=== PATIENT | female | born 1985 | race Caucasian/White ===

== ENCOUNTER 2016-07-09 15:02 | Emergency (ER) ==
[2016-07-09 15:33] LABS: BASO% 0.3 % (0.0-0.8); EOS# 0.54 X1000 (0.0-0.7); EOS% 3.9 % (0.0-10.0); HEMATOCRIT 43.3 % (37.0-47.0); HEMOGLOBIN 14.6 g/dL (12.0-16.0); IMM GRAN# 0.02 X1000 (0.0-0.04); IMM GRAN% 0.1 % (0.0-0.5); LYMPH# 2.17 X1000 (1.2-3.4); LYMPH% 15.7 % (20.5-51.1); MANUAL DIFF NEEDED? NO; MCH 31.2 PG (27-31); MCHC 33.7 g/dL (33-37); MCV 92.5 FL (81-99); MONO# 0.83 X1000 (0.11-0.59); MPV 9.9 FL (7.4-10.4); PLT 233 X1000 (130-400); RBC 4.68 XMIL (4.2-5.4)
[2016-07-09 15:36] LABS: BILIRUBIN URINE NEGATIVE (NEGATIVE); BLOOD URINE NEGATIVE (NEGATIVE); COLOR YELLOW; GLUCOSE URINE NEGATIVE (NEGATIVE); LEUKOCYTES URINE NEGATIVE (NEGATIVE); NITRITE URINE NEGATIVE (NEGATIVE); PROTEIN URINE NEGATIVE (NEGATIVE); TURBIDITY URINE CLEAR (CLEAR); URINE CULTURE NEEDED? NO; URINE MICRO REVIEW NEEDED? NO; URINE SOURCE CLEAN CATCH; UROBILINOGEN URINE 2 mg/dL (NORMAL)
[2016-07-09 15:38] LABS: UR EPITHELIAL CELLS <10 /HPF (<10); URINE BACTERIA 1+ /HPF; URINE RBC <10 /HPF (<10); URINE WBC <10 /HPF (<10)
[2016-07-09 16:00] LABS: AGAP 12; ALBUMIN 4.6 g/dL (3.5-5.0); ALKALINE PHOSPHATASE 64 U/L (32-104); AMYLASE 61 U/L (20-200); BUN 11 mg/dL (8-22); CALCIUM 9.5 mg/dL (8.8-10.2); CHLORIDE 104 mmol/L (98-107); COSMO 283; GOT 13 U/L (10-30); GPT 16 U/L (10-36); LIPASE 52 U/L (13-60); POTASSIUM 3.9 mmol/L (3.5-5.1); SODIUM 142 mmol/L (136-145); TCO2 26 mmol/L (25-35); TOTAL BILIRUBIN 0.49 mg/dL (0.20-1.00); TOTAL PROTEIN 7.8 g/dL (6.3-8.3)
--- NOTE | 2016-07-09 17:10 | PROVIDER DOCUMENTATION ---
HPI-Abdominal Pain/GI Problem - General Source: patient <Tram Rincon - Last Filed: 07/09/16 17:04> - History of Present Illness-ABD Abdominal Pain Onset Location: reports: periumbilical Pain Radiation: reports: no radiation Quality of Pain: reports: aching Severity in ED: reports: mild Onset/Duration: reports: 4 days ago Timing: reports: still present Activities at Onset: reports: none Modifying Factors: improves with: nothing Bruising or Bleeding Gums?: No Similar Symptoms Previously?: No Recently seen or treated by another doctor?: Yes <Aleksandra Pittman - Last Filed: 07/10/16 00:07> - General Chief Complaint: Abdominal Pain Stated Complaint: abd pain Time Seen by Provider: 07/09/16 16:58 Allergies/Adverse Reactions: Patient Allergies Allergy/AdvReac Type Severity Reaction Status Date / Time No Known Allergies Allergy Verified 07/09/16 19:20 Home Medications: Citalopram [Celexa] 40 mg PO HS 07/09/13 Topiramate [Topamax] 100 mg PO QPM 07/09/13 Dicyclomine [Bentyl] 10 mg PO 4XDAY PRN 07/09/16 - History of Present Illness-ABD Nature of Presenting Problems: 31 year old WF presents with a 4 day history of dull umbilical abd pain. pt reports it is constant, non-radiating with associated anorexia, nausea, worsens with food/intake. pt reports she was evaluated at an urgent care yesterday, given bentyl, provides brief relief and then it worsens. denies fever, chills. pt reports the pain has been awakening h er from sleep at night. denies vomiting , diarrhea. pt reports she has a history of frequent UTI's which are managed by a urologist, but she reports this pain is different. (Tram Rincon) Review of Systems - Adult - REVIEW OF SYSTEMS - ADULT Constitutional: denies: chills, fever Eyes: reports: no symptoms reported Ears, Nose, Mouth & Throat: denies: ear pain, throat pain Cardiovascular: denies: chest pain, palpitations Respiratory: denies: cough, shortness of breath Gastrointestinal: reports: abdominal pain. denies: nausea, vomiting Genitourinary: denies: dysuria, hematuria Musculoskeletal: denies: muscle aches, muscle weakness Integumentary: reports: no symptoms reported Neurological: reports: no symptoms reported Psychiatric: reports: no symptoms reported Endocrine: reports: no symptoms reported Hematologic/Lymphatic: reports: no symptoms reported Allergic/Immunologic: reports: no symptoms reported All Other Systems: Reviewed and Negative <Aleksandra Pittman - Last Filed: 07/10/16 00:07> Past History - Adult - PAST MEDICAL HISTORY-ADULT Obstetrical/Gynecological: reports: ovarian cysts Neurological: reports: headaches/migraines Psychiatric: reports: depression - PRIOR SURGERIES/PROCEDURES Surgical/Procedure History: reports: other (brain Sx, septoplasty, lap Sx, jaw Sx) - IMMUNIZATION STATUS Childhood Immunizations: UTD Flu Vaccine: See Nurse Assessment - FAMILY HISTORY Family History: reviewed, not pertinent <Tram Rincon - Last Filed: 07/09/16 17:04> - PAST MEDICAL HISTORY-ADULT Review of Records: reports: Nursing Assessment Review, Medications Reviewed Major Childhood Illnesses: reports: denies history - PRIOR SURGERIES/PROCEDURES Surgical/Procedure History: reports: hysterectomy, other (brain, jaw, laproscopy , rhinoplasty) - IMMUNIZATION STATUS Childhood Immunizations: See Nurse Assessment Flu Vaccine: See Nurse Assessment <Aleksandra Pittman - Last Filed: 07/10/16 00:07> Physical Exam-General - PHYSICAL EXAM-ADULT Initial Vital Signs Reviewed: Yes - CONSTITUTIONAL General Appearance: appears well, alert, no apparent distress - RESPIRATORY Respiratory: chest non-tender, lungs clear, normal breath sounds - CARDIOVASCULAR Cardiovascular: normal peripheral pulses, regular rate, rhythm, no edema - GASTROINTESTINAL (ABDOMEN) Abdominal Exam: normal bowel sounds, soft, tenderness (epigastric and RUQ), Borwn's sign - MUSCULOSKELETAL Extremity: normal inspection - SKIN Integumentary: normal color, normal turgor, warm/dry - PSYCHIATRIC Psych/Mental Status: normal mood/affect, normal thought content, normal thought process, oriented x 3 <Aleksandra Pittman - Last Filed: 07/10/16 00:07> Progress <Tram Rincon - Last Filed: 07/09/16 17:04> - ULTRASOUND (By Radiology) 1 US Study: Gallbladder Impression: Normal US Results: normal <Aleksandra Pittman - Last Filed: 07/10/16 00:07> - PLAN OF CARE/RESULTS Progress/Plan/Lab Results: plan of care: imaging, labs, medications Orders Category Date Time Status FLAT/UPRIGHT ABD/1 VIEW CHEST [RAD] Stat Exams 07/09/16 17:09 Taken US GB < RUQ (LIMITED) [US] Stat Exams 07/09/16 21:48 Taken AMYLASE [CHEM] Stat Lab 07/09/16 15:17 Completed CBC WITH ELECTRONIC DIFF [HEME] Stat Lab 07/09/16 Completed COMPREHENSIVE METABOLIC PANEL [CHEM] Stat Lab 07/09/16 15:17 Completed LIPASE [CHEM] Stat Lab 07/09/16 15:17 Completed UA Reflex [URINALYSIS W/POSS RFLX CULT] [URINALYSIS] Lab 07/09/16 Completed Stat Ketorolac [Toradol] Med 07/09/16 21:49 Discontinued 60 mg IM NOW ONE Ondansetron Odt [Zofran Odt] Med 07/09/16 21:49 Discontinued 8 mg PO NOW ONE Laboratory Tests 07/09/16 07/09/16 07/09/16 15:17 Unknown Unknown WBC 13.84 H RBC 4.68 Hgb 14.6 Hct 43.3 MCV 92.5 MCH 31.2 H MCHC 33.7 RDW Std Deviation 12.9 Plt Count 233 MPV 9.9 Immature Gran % (Auto) 0.1 Neut % (Auto) 74.0 Lymph % (Auto) 15.7 L [place] % (Auto) 6.0 Eos % (Auto) 3.9 Baso % (Auto) 0.3 Immature Gran # (Auto) 0.02 Neut # (Auto) 10.24 H Lymph # (Auto) 2.17 [place] # (Auto) 0.83 H Eos # (Auto) 0.54 Baso # (Auto) 0.04 Sodium 142 Potassium 3.9 Chloride 104 Carbon Dioxide 26 Anion Gap 12 BUN 11 Creatinine 0.8 Estimated GFR/1.73 m2 > 60 BUN/Creatinine Ratio 14 Glucose 106 H Calculated Osmolality 283 Calcium 9.5 Total Bilirubin 0.49 AST 13 ALT 16 Alkaline Phosphatase 64 Total Protein 7.8 Albumin 4.6 Globulin 3.2 Albumin/Globulin Ratio 1.4 Amylase 61 Lipase 52 Urine Source CLEAN CATCH Urine Color YELLOW Urine Turbidity CLEAR Urine pH 7.0 Ur Specific [place] 1.020 Urine Protein NEGATIVE Ur Glucose (Stick) NEGATIVE Ur Ketones (Stick) NEGATIVE Urine Blood NEGATIVE Urine Nitrite NEGATIVE Urine Bilirubin NEGATIVE Urobilinogen Dipstick 2 A Urine Leukocytes NEGATIVE Urine WBC (Auto) <10 Urine RBC (Auto) <10 U Epithel Cells (Auto) <10 Urine Bacteria (Auto) 1+ Vital Signs - 24 hr 07/09/16 07/09/16 15:06 19:23 Temperature 97.7 F 98.5 F Pulse Rate 75 75 Respiratory 20 16 Rate Blood Pressure 109/65 115/74 O2 Sat by Pulse 100 100 Oximetry Pt given results and will be d/c home w/ rx to follow up with PCP. Pt verbally understood instructions. PT remained clinically stable throughout the course of the ED stay and will return if symptoms worsen. (Aleksandra Pittman) Departure <Tram Rincon - Last Filed: 07/09/16 17:04> - Departure Time of Disposition Order: 00:05 Certified Medical Emergency: Emergent <Aleksandra Pittman - Last Filed: 07/10/16 00:07> - Departure DIAGNOSIS: Biliary colic Disposition: HOME 01 Condition: Good Additional Instructions: Avoid fatty and greasy foods. Follow up with surgery. ED Follow Up Instructions: You have been treated by a care provider in the Emergency Department. These instructions are being provided to you so you can have an understanding of how to care for yourself upon discharge. Upon discharge from the Emergency Department, you are responsible for making arrangements for follow-up care by a physician of your choice. Take all prescribed medications as directed. Return to the Emergency Department immediately for any new or worsening symptoms. You may call the Physician Referral phone number at [phone] to obtain a list of Physicians who are taking new patients. Prescriptions: Hydrocodone/Acetaminophen [[place] 7.5-325 Tablet] 1 each PO Q4-6H PRN PRN #20 tablet PRN Reason: Pain Ketorolac [Toradol] 10 mg PO Q6H PRN PRN #20 tablet PRN Reason: Pain Ondansetron [Zofran Odt] 8 mg PO Q8H PRN #20 tab.rapdis Referrals: Jenn Laurent MD [Primary Care Provider] - Puneet Grace MD [STAFF PHYSICIAN] - Instructions: Biliary Colic Attestation - Scribe Verification/Attestation Scribe:: Aleksandra Pittman Acting as Scribe for:: Elijah Warner Scribe documention review:: This chart was documented by a scribe and accurately reflects the service the provider performed and the decisions made by the provider. <Aleksandra Pittman - Last Filed: 07/10/16 00:07> Physician Attestation - Physician Attestation I, the provider, attest to the following statement:: Elijah Warner Physician documentation Attestation:: This documentation recorded by the scribe accurately reflects the service I personally performed and the decisions made by me. <Aleksandra Pittman - Last Filed: 07/10/16 00:07>
[2016-07-09] MEDS ORDERED: ZOFRAN ODT PO ONE (21:49)
[2016-07-09] MEDS ORDERED: TORADOL IM ONE (21:49)
[2016-07-10 00:16] VITALS: BP 115/72
--- NOTE | 2016-07-10 07:32 | Diag Imaging Result Document ---
PROCEDURE NAME: US GB < RUQ (LIMITED) - 07/09/2016 RIGHT UPPER QUADRANT ULTRASOUND: COMPARISON: None. FINDINGS: The liver, gallbladder, pancreas, and right kidney are normal. The common bile duct measures 4 mm. Aorta, IVC, and main portal vein are patent. IMPRESSION: Negative exam.
--- NOTE | 2016-07-10 08:14 | Diag Imaging Result Document ---
PROCEDURE NAME: FLAT/UPRIGHT ABD/1 VIEW CHEST - 07/09/2016 FRONTAL CHEST X-RAY AND 2 VIEWS OF THE ABDOMEN: COMPARISON: 06/02/2014, 05/29/2014. FINDINGS: The chest is clear. There is a nonobstructive bowel gas pattern. No free air or abnormal calcifications. IMPRESSION: No acute disease.
== END 2016-07-10 00:15 | disposition home or self-care (01) ==
LOC: ED 15:02
DX: K80.50 Calculus of bile duct without cholangitis or cholecystitis without obstruction (principal); R10.33 Periumbilical pain; R11.0 Nausea; R10.816 Epigastric abdominal tenderness; R10.811 Right upper quadrant abdominal tenderness; F32.9 Major depressive disorder, single episode, unspecified; Z79.899 Other long term (current) drug therapy; Z87.440 Personal history of urinary (tract) infections; Z87.42 Personal history of other diseases of the female genital tract
CPT/HCPCS: 36415; 74022; 76705; 80053; 81001; 82150; 83690; 85025; 96372; J1885; S0181